=== PATIENT | male | born 1980 | race Caucasian/White ===

== ENCOUNTER 2021-03-14 15:45 | Emergency (ER) | payer OTHER, BC, SELFPAY ==
--- NOTE | ~2021-03-14 | XR_ITS ---
EXAMINATION: [id number] EXAM DATE: 03/14/2021 16:16 INDICATION: Initial encounter following injury, with pain of the left ribs. TECHNIQUE: Frontal projection of the upper left ribs, frontal projection of the lower left ribs, obli que projection of the left ribs, frontal chest x-ray(s) for interpretation. There is no prior study for comparison. FINDINGS: There are no displaced acute left rib fractures identified. There is no soft tissue abnor mality seen. No confluent consolidation, pneumothorax or pleural effusion suspected. Cardiomediastina l silhouette is normal. Consider educating patient that even if there is a radiographically occult nondisplaced rib fracture, there is no specific treatment other than to refrain from activity that prevents healing. IMPRESSION: No displaced left rib fractures. Reviewed, dictated and finalized at location [facility].
[2021-03-14 16:01] VITALS: BP 162/100; PULSE 95; RESP 18; TEMP 36.7; O2SAT 100
--- NOTE | 2021-03-14 17:15 | ED.GENADULT ---
HPI - General Adult General Chief complaint: Fall Stated complaint: 5 FOOT FALL FROM TRUCK, L RIB PAIN Time Seen by Provider: 03/14/21 15:59 Source: patient and RN notes reviewed Mode of arrival: ambulatory Limitations: no limitations History of Present Illness HPI narrative: Patient is a 40-year-old male who presents with injuries related to having falling backwards today patient presents with abrasions of the anterior right and posterior left thorax patient notes aching pain at these locations denies having hit his head loss of consciousness syncope presents per private vehicle in no distress he gone to primary care was given a pain pill prior to arrival Related Data Allergies Allergy/AdvReac Type Severity Reaction Status Date / Time No Known Allergies Allergy Mild Unverified 05/12/11 18:36 naproxen Allergy Unknown Unknown Verified 03/14/21 16:06 Review of Systems Review of Systems: All systems reviewed & are unremarkable except as noted in HPI and below PMFSH Social History Social History Smoking status: Former smoker Smoking end date: 08/19/02 Alcohol intake: current Exam Narrative: Exam Narrative: GENERAL: Well-appearing, well-nourished, and in no acute distress. HEAD: Normocephalic, atraumatic. EYES: PERRLA and EOMI. ENT: Nares clear, no rhinorrhea or epistaxis. Mucous membranes moist. CHEST: Clear to auscultation. No respiratory distress. No wheezes rales or rhonchi HEART: Regular rate and rhythm. No murmur heard. Normal peripheral pulses. ABDOMEN: Soft, nontender, nondistende EXTREMITIES: Normal range of motion. No edema. No cervical thoracic or lumbar tenderness SKIN: Warm, dry, no rash. Tenderness of the anterior right ribs and posterior left ribs with air abrasions NEURO: No focal deficits. Alert and oriented x3. Cranial nerves II through XII grossly intact. Normal speech and gait. Neurovascularly intact PSYCH: Normal mood and affect. Course Course Emergency Course: Patient evaluated in the emergency department no distress aware of case findings treatment plan diagnosis agreeing to follow-up as instructed hemodynamically intact ABCs and vital signs intact Vital Signs Vital signs: Vital Signs Temperature 98.0 F 03/14/21 16:01 Pulse Rate 95 03/14/21 16:01 Respiratory Rate 18 03/14/21 16:01 Blood Pressure 162/100 H 03/14/21 16:01 Pulse Oximetry 100 03/14/21 16:01 Temperature 98.0 F 03/14/21 16:01 Pulse Rate 95 03/14/21 16:01 Respiratory Rate 18 03/14/21 16:01 Blood Pressure 162/100 H 03/14/21 16:01 Pulse Oximetry 100 03/14/21 16:01 Medical Decision Making MDM Narrative Medical decision making narrative: Patients injury or pain is consistent with musculoskeletal etiology. No signs of neurological or vascular compromise on exam. Compartments and tisues are soft without signs of compartment syndrome. Pain is felt appropriate for further evaluation on an outpatient basis. No rib fractures or pneumo Vital Signs Vital Signs: Vital Signs Temperature 98.0 F 03/14/21 16:01 Pulse Rate 95 03/14/21 16:01 Respiratory Rate 18 03/14/21 16:01 Blood Pressure 162/100 H 03/14/21 16:01 Pulse Oximetry 100 03/14/21 16:01 Temperature 98.0 F 03/14/21 16:01 Pulse Rate 95 03/14/21 16:01 Respiratory Rate 18 03/14/21 16:01 Blood Pressure 162/100 H 03/14/21 16:01 Pulse Oximetry 100 03/14/21 16:01 Imaging Data Radiologist's impression: ITS Impressions Ribs w/Chest X-Ray 03/14/21 16:25 IMPRESSION: No displaced left rib fractures. Discharge Plan Discharge Clinical Impression: Rib injury Patient Disposition: Home, Self-Care Condition: Stable Instructions: Antibiotic Form, Rib Contusion (ED) Additional Instructions: Follow up with your primary care provider within 5-7 days. Go to ER for shortness of breath, difficulty breathing, chest pain, fever/chills, wea
[2021-03-14 17:34] VITALS: BP 142/78; PULSE 78; RESP 18; O2SAT 99
== END 2021-03-14 17:37 | disposition home or self-care (01) ==
PROVIDERS: Emergency Provider Emergency Medicine; PCP Internal Medicine
DX: S20.412A Abrasion of left back wall of thorax, initial encounter (principal); S20.311A Abrasion of right front wall of thorax, initial encounter; Z87.891 Personal history of nicotine dependence; W17.89XA Other fall from one level to another, initial encounter
CPT/HCPCS: 71101; 99283

== ENCOUNTER 2022-11-19 16:05 | Emergency (ER) | payer BC, SELFPAY ==
--- NOTE | 2022-11-19 16:13 | ED.EYEPROB ---
HPI - Eye Problem General Chief complaint: Eye Problems Stated complaint: Left Eye Pain Time Seen by Provider: 11/19/22 16:29 Source: patient and RN notes reviewed Mode of arrival: ambulatory Limitations: no limitations History of Present Illness HPI Narrative: 42-year-old male presents concern for painful left eye. Reports he was working outside when he felt something blow in his eye and then had pain. He reports some light sensitivity. Denies discharge or vision changes. Reports he tried to rinse it chief complaint: eye pain Related Data Home Medications Medication Instructions Recorded Confirmed losartan 50 mg-hydrochlorothiazide 1 tablet PO DAILY 11/19/22 11/19/22 12.5 mg tablet phentermine 37.5 mg capsule 37.5 mg PO DAILY 11/19/22 11/19/22 Allergies Allergy/AdvReac Type Severity Reaction Status Date / Time naproxen Allergy Unknown Unknown Verified 11/19/22 16:19 Review of Systems Review of Systems: CONSTITUTIONAL: Denies malaise, chills, sweats, or fever. EYES: Denies visual changes. Reports left redness, pain ENT: Denies rhinorrhea, congestion, sinus pain, otalgia or sore throat. SKIN: Denies rash or itching. NEUROLOGIC: Denies numbness, weakness, or headache. PSYCHIATRIC: Denies anxiety or depression. All systems reviewed & are unremarkable except as noted in HPI and below PMFSH Social History Social History Smoking status: Former smoker Smoking end date: 08/19/02 Alcohol intake: current Comments At time of signature, agree with nursing past medical, surgical, social and family history. There is no relevant family history pertinent to the presenting complaint Exam Narrative: GENERAL: Well-appearing, well-nourished, and in no acute distress. HEAD: Normocephalic, atraumatic. EYES: PERRLA, sclera clear, and EOMI. No nystagmus. Left conjunctivae clear, sclera mildly injected with corneal abrasion noted upon Wood's lamp exam, see note. Upper and lower eyelid unremarkable, no periorbital edema noted ENT: Nares clear, turbinates pink, no rhinorrhea or epistaxis. Mucous membranes moist. TM pearly donahue with sharp light reflex bilaterally; no tragal tenderness. NECK: Supple. CHEST: No respiratory distress. Speaks in full sentences. HEART: Regular rate and rhythm. SKIN: Warm, dry, no visible rash. NEURO: Alert and oriented x3. PSYCH: Normal mood and affect Course Course Emergency Course: Patient is aware of diagnosis, understands and agrees to treatment plan. Anticipatory guidance given. Patient agrees to follow-up as directed and is aware of reasons to seek care at the emergency department. Portions of this record may have been created with voice recognition software Level of Care: Express Care Visit Vital Signs Vital signs: Reviewed. Procedures Other Procedure Procedure 1: Other Procedure: Tetracaine 1 gtt instilled in left eye, fluorescein stain applied. Corneal abrasion noted upon mcgovern lamp exam above the pupil. Eye washed with NS 100 ml. No foreign bodies or Corinna sign noted. MDM - Eye Problem MDM Narrative Medical decision making narrative: Consideration of the following conditions may be warranted for the presenting problem, they are not final diagnoses: Bacterial conjunctivitis, allergic conjunctivitis, viral conjunctivitis, foreign body, blepharitis, chalazion, hordeolum, corneal abrasion, preseptal cellulitis, orbital cellulitis. No evidence of proptosis, ophthalmoplegia, vision loss, pain with eye movement. Exam findings show no acute concerns or changes; patient is non-toxic appearing and is in no distress. Patient is appropriate for outpatient treatment and follow-up. Critical Care Time Critical Care Time Critical Care Time: No Discharge Plan Discharge Clinical Impression: Corneal abrasion Patient Disposition: Home, Self-Care Condition: Stable Instructions: Corneal Abrasion (ED)
[2022-11-19 16:18] VITALS: BP 120/73; PULSE 97; RESP 14; TEMP 36.6; O2SAT 97
== END 2022-11-19 16:42 | disposition home or self-care (01) ==
PROVIDERS: Emergency Provider Nurse Practitioner; PCP Internal Medicine
DX: S05.02XA Injury of conjunctiva and corneal abrasion without foreign body, left eye, initial encounter (principal); X58.XXXA Exposure to other specified factors, initial encounter; Z87.891 Personal history of nicotine dependence
CPT/HCPCS: 99213; A9270; G0463

== ENCOUNTER 2023-02-04 10:16 | Outpatient (CLI) | payer BC, SELFPAY ==
--- NOTE | ~2023-02-04 | CT_ITS ---
CT of the Abdomen and Pelvis: Indication: Abdominal pain Technique: 2.5 mm axial scans were obtained through the abdomen and pelvis following intravenous adm inistration of 100 cc of Omnipaque 350. Dose reduction technique was used on this scan by utilizing a utomated exposure control and iterative reconstruction technique. The dose-length product (DLP) was 7 74.10 mGy-cm. Findings: Scans through the lung bases are unremarkable. The liver, spleen, pancreas, gallbladder, adrenals and kidneys are within normal limits. No evidence of aortic aneurysm. No lymphadenopathy. No bowel obstruction or bowel wall thickening. There is no evidence to suggest acute appendicitis. Images through the pelvis were performed. Urinary bladder unremarkable. Prostate gland and seminal ve sicles are unremarkable. No ascites. Impression: No significant abnormalities seen. Reviewed, dictated and finalized at [facility]. Impression: No significant abnormalities seen.
[2023-02-04 10:36] LABS: Estimated Glomerular Filt Rate > 60
== END 2023-02-04 10:17 ==
LOC: MICIMG 10:17
PROVIDERS: PCP Internal Medicine; Visit Provider Nurse Practitioner Family
DX: R10.9 Unspecified abdominal pain (principal)
CPT/HCPCS: 74177; Q9967